=== PATIENT | male | born 1970 | race Caucasian/White ===

== ENCOUNTER 2017-03-11 12:28 | Observation (INO) | payer SELFPAY ==
[2017-03-11] VITALS (9 sets, daily range): BP systolic 119–137; BP diastolic 68–97; PULSE 71–110; RESP 16–18; TEMP 97.9–99; O2SAT 95–98
[~2017-03-11 12:28] MED LIST: Z.0.NO CURRENT MEDS
[2017-03-11 13:43] LABS: AUTOMATED NEUTROPHIL # 7.1 TH/MM3 (1.8-7.7); BASOPHIL % 0.4 % (0.0-2.0); EOSINOPHIL % 0.1 % (0.0-4.0); HEMATOCRIT 46.4 % (39.0-51.0); HEMO FLAGS DIFF FINAL; MEAN CELL VOLUME 91.2 FL (80.0-100.0); MEAN CORPUSCULAR HEMOGLOBIN 31.5 PG (27.0-34.0); MEAN CORPUSCULAR HGB CONC 34.6 % (32.0-36.0); MONO % 7.6 % (0.0-8.0); NEUT % 80.9 % (16.0-70.0); PLATELET COUNT 218 TH/MM3 (150-450); RED BLOOD COUNT 5.09 MIL/MM3 (4.50-5.90); RED CELL DISTRIBUTION WIDTH 13.7 % (11.6-17.2); WHITE BLOOD COUNT 8.8 TH/MM3 (4.0-11.0)
--- NOTE | 2017-03-11 13:45 | RADRPT ---
EXAM DATE/TIME: 03/11/2017 13:27 [place] COMPARISON: No previous studies available for comparison. INDICATIONS : Shortness of breath and chest congestion. MEDICAL HISTORY : None. SURGICAL HISTORY : None. ENCOUNTER: Initial ACUITY: 1 week PAIN SCORE: 0/10 LOCATION: Bilateral chest FINDINGS: PA and lateral views of the chest demonstrate the lungs to be symmetrically aerated without evidence of mass, infiltrate or effusion. The cardiomediastinal contours are unremarkable. Osseous structure s are intact. CONCLUSION: 1. No acute cardiopulmonary disease. Mark Martin MD on March 11, 2017 at 13:41 Board Certified Radiologist. This report was verified electronically.
[2017-03-11 13:53] LABS: APTT (PATIENT) 23.7 SEC (24.3-30.1); PROTHROMBIN TIME - PATIENT 10.4 SEC (9.8-11.6)
[2017-03-11 14:01] LABS: ALT (GPT) 34 U/L (12-78); ANION GAP 6 MEQ/L (5-15); AST (GOT) 19 U/L (15-37); BICARBONATE 26.4 MEQ/L (21.0-32.0); BLOOD UREA NITROGEN 7 MG/DL (7-18); CHLORIDE 107 MEQ/L (98-107); GLOMERULAR FILTRATION RATE 85 ML/MIN (>89); MAGNESIUM 2.3 MG/DL (1.5-2.5); POTASSIUM 3.9 MEQ/L (3.5-5.1); SODIUM (NA) 139 MEQ/L (136-145)
[2017-03-11 14:05] LABS: ALKALINE PHOSPHATASE 86 U/L (45-117); CREATINE KINASE 112 U/L (39-308); TOTAL BILIRUBIN ADULT 0.6 MG/DL (0.2-1.0)
[2017-03-11] MEDS ORDERED: ASPIRIN 81 MG CHEW TAB PO ONE (14:15)
[2017-03-11] MEDS ORDERED: SODIUM CHLORIDE 0.9% FLUSH 10 ML FLUSH IVF PRN (14:15)
[2017-03-11 14:17] LABS: CKMB 0.9 NG/ML (0.5-3.6)
--- NOTE | 2017-03-11 14:17 | PD ---
HPI Chief Complaint: Chest Pain Time Seen by Provider: 14:01 Travel History International Travel<30 days: No Contact w/Intl Traveler<30days: No Traveled to known affect area: No History of Present Illness HPI Patient is a 46-year-old male who presents to emergency room with complaints of chest pain. Patient reports that he has been having chest pain which has been constant for the past week. Patient reports that chest pain is located throughout his chest wall, reports a pressure sensation throughout his chest. Reports that chest pain initially began last week while he was at work. Reports that he was walking and then developed chest pain. Reports that his chest pressure was associated with diaphoresis and sob. Reports that pain has been persistent. Reports that he does not have any medical problems as he does not follow up with a pcp. Patient is a nonsmoker, occasional alcohol drinker. Denies any recent travels/trips. Denies history of ACS, hypertension, hyperlipidemia, DM. Denies cough/congestion. Reports that he initially thought that he had the flu but since symptoms have been persistent, became more concerned. PFSH Past Medical History Autoimmune Disease: No Cancer: No Cardiovascular Problems: No Diminished Hearing: No Endocrine: No Gastrointestinal Disorders: Yes (NOTED SOME GI BLEED ABOUT 2 MTHS AGO - NEVER SAW ) GERD: No Genitourinary: No Hiatal Hernia: No Hypertension: Yes (IN THE PAST) Immune Disorder: No Musculoskeletal: No Neurologic: No Reproductive: No Respiratory: No Ulcer: No Tetanus Vaccination: > 5 Years Influenza Vaccination: Yes Past Surgical History Abdominal Surgery: Yes (COLON SX) Social History Alcohol Use: Yes (OCCASIONALLY) Tobacco Use: No Substance Use: No Allergies-Medications (Allergen,Severity, Reaction): Coded Allergies: No Known Allergies (Verified Adverse Reaction, Unknown, 03/11/17) Reported Meds & Prescriptions Reported Meds & Active Scripts Active No Active Prescriptions or Reported Medications Review of Systems General / Constitutional: No: Fever Eyes: No: Visual changes HENT: No: Headaches Cardiovascular: Positive: Chest Pain or Discomfort, Diaphoresis, Dyspnea on exertion, No: Irregular Rhythm, Tachycardia, Syncope, Varicosities, Edema, Cyanosis Respiratory: Positive: Shortness of Breath Gastrointestinal: No: Nausea, Vomiting, Abdominal Pain Genitourinary: No: Urgency, Dysuria Musculoskeletal: No: Pain Skin: No Rash Neurologic: No: Weakness Psychiatric: No: Depression Endocrine: No: Polydipsia Hematologic/Lymphatic: No: Easy Bruising Physical Exam Narrative GENERAL: NAD SKIN: Focused skin assessment warm/dry. HEAD: Atraumatic. Normocephalic. EYES: Pupils equal and round. No scleral icterus. No injection or drainage. ENT: No nasal bleeding or discharge. Mucous membranes pink and moist. NECK: Trachea midline. No JVD. CARDIOVASCULAR: Regular rate and rhythm. No murmur appreciated. RESPIRATORY: No accessory muscle use. Clear to auscultation. Breath sounds equal bilaterally. GASTROINTESTINAL: Abdomen soft, non-tender, nondistended. Hepatic and splenic margins not palpable. MUSCULOSKELETAL: No obvious deformities. No clubbing. No cyanosis. No edema. NEUROLOGICAL: Awake and alert. No obvious cranial nerve deficits. Motor grossly within normal limits. Normal speech. PSYCHIATRIC: Appropriate mood and affect; insight and judgment normal. Data Data Last Documented VS Vital Signs Date Time Temp Pulse Resp B/P (MAP) Pulse Ox O2 Delivery O2 Flow Rate FiO2 03/11/17 14:45 16 03/11/17 14:40 92 124/81 (95) 98 Room Air 03/11/17 12:30 99.0 Orders Orders Electrocardiogram (03/11/17 12:59) B-Type Natriuretic Peptide (03/11/17 12:59) Ckmb (Isoenzyme) Profile (03/11/17 12:59) Complete Blood Count With Diff (03/11/17 12:59) Comprehensive Metabolic Panel (03/11/17 12:59) Magnesium (Mg) (03/11/17 12:59) Prothrombin Time / Inr (Pt) (03/11/17 12:59) Act Partial Throm Time (Ptt) (03/11/17 12:59) Troponin I (03/11/17 12:59) Chest, Pa & Lat (03/11/17 12:59) CKMB (03/11/17 13:20) CKMB% (03/11/17 13:20) Ecg Monitoring (03/11/17 14:07) Iv Access Insert/Monitor (03/11/17 14:07) Oximetry (03/11/17 14:07) Aspirin Chew (Aspirin Chew) (03/11/17 14:15) Sodium Chloride 0.9% Flush (Ns Flush) (12/13/17 14:15) Nitroglycerin Sl (Nitrostat Sl) (03/11/17 14:15) Labs Laboratory Tests Test 03/11/17 13:20 White Blood Count 8.8 TH/MM3 Red Blood Count 5.09 MIL/MM3 Hemoglobin 16.0 GM/DL Hematocrit 46.4 % Mean Corpuscular Volume 91.2 FL Mean Corpuscular Hemoglobin 31.5 PG Mean Corpuscular Hemoglobin Concent 34.6 % Red Cell Distribution Width 13.7 % Platelet Count 218 TH/MM3 Mean Platelet Volume 7.8 FL Neutrophils (%) (Auto) 80.9 % Lymphocytes (%) (Auto) 11.0 % Monocytes (%) (Auto) 7.6 % Eosinophils (%) (Auto) 0.1 % Basophils (%) (Auto) 0.4 % Neutrophils # (Auto) 7.1 TH/MM3 Lymphocytes # (Auto) 1.0 TH/MM3 Monocytes # (Auto) 0.7 TH/MM3 Eosinophils # (Auto) 0.0 TH/MM3 Basophils # (Auto) 0.0 TH/MM3 CBC Comment DIFF FINAL Differential Comment Prothrombin Time 10.4 SEC Prothromb Time International Ratio 1.0 RATIO Activated Partial Thromboplast Time 23.7 SEC Blood Urea Nitrogen 7 MG/DL Creatinine 0.95 MG/DL Random Glucose 102 MG/DL Total Protein 7.7 GM/DL Albumin 4.1 GM/DL Calcium Level 9.1 MG/DL Magnesium Level 2.3 MG/DL Alkaline Phosphatase 86 U/L Aspartate Amino Transf (AST/SGOT) 19 U/L Alanine Aminotransferase (ALT/SGPT) 34 U/L Total Bilirubin 0.6 MG/DL Sodium Level 139 MEQ/L Potassium Level 3.9 MEQ/L Chloride Level 107 MEQ/L Carbon Dioxide Level 26.4 MEQ/L Anion Gap 6 MEQ/L Estimat Glomerular Filtration Rate 85 ML/MIN Total Creatine Kinase 112 U/L Creatine Kinase MB 0.9 NG/ML Troponin I LESS THAN 0.02 NG/ML B-Type Natriuretic Peptide 16 PG/ML MDM Medical Decision Making Medical Screen Exam Complete: Yes Emergency Medical Condition: Yes Medical Record Reviewed: Yes Interpretation(s) EKG at 1317: NSR at 89bpm, qt/qtc: 347/393, nonspecific t wave changes Vital Signs Date Time Temp Pulse Resp B/P (MAP) Pulse Ox O2 Delivery O2 Flow Rate FiO2 03/11/17 13:55 86 16 98 Room Air 03/11/17 12:30 99.0 110 16 137/97 (110) 98 Differential Diagnosis acs, arrhythmia, pneumothorax, pneumonia, viral syndrome Narrative Course During the course of the patients emergency department visit, the patients history, examination, and differential diagnosis were reviewed with the patient. The patient was placed on a nurse monitoring with oximetry and frequent blood pressure monitoring. The patient had an IV access obtained and blood work sent for analysis. The patient was initially provided aspirin as well as sublingual nitroglycerin The patients laboratory studies were reviewed and remarkable for: CBC & BMP Diagram 03/11/17 13:20 Total Protein 7.7, Albumin 4.1, Calcium Level 9.1, Magnesium Level 2.3, Alkaline Phosphatase 86, Aspartate Amino Transf (AST/SGOT) 19, Alanine Aminotransferase (ALT/SGPT) 34, Total Bilirubin 0.6 Trop 0.02 Radiology studies were reviewed and remarkable for: Last Impressions Chest X-Ray 03/11/17 1259 Signed Impressions: Service Date/Time: Saturday, March 11, 2017 13:27 - CONCLUSION: 1. No acute cardiopulmonary disease. Mark Martin MD Patient with relief of "chest pressure" after 3 SL nitro's given Diagnosis Primary Impression: Chest pain Qualified Codes: R07.9 - Chest pain, unspecified Admitting Information Admitting Physician Requests: Observation Scripts No Active Prescriptions or Reported Meds Cherise Barajas DO Mar 11, 2017 14:17
[2017-03-11] MEDS: NITROGLYCERIN 0.4 MG SL 25 TABS/BTL SL SCH ×3 (14:28→14:39)
[2017-03-11] MEDS ORDERED: ACETAMINOPHEN 500 MG CPLT PO PRN (15:15)
[2017-03-11] MEDS ORDERED: NITROGLYCERIN 0.4 MG SL 25 TABS/BTL SL PRN (15:15)
[2017-03-11] MEDS ORDERED: ONDANSETRON HCL 4 MG/2 ML VIAL IV PUSH PRN (15:15)
--- NOTE | 2017-03-11 15:27 | HHI.HP ---
HPI Primary Care Physician No Primary Care Physician Chief Complaint Chest pressure History of Present Illness 46 year old male without any significant past medical history presents to ER for further evaluation of chest pressure. Onset 10 days ago. Initially felt chest pressure may be "walking pneumonia" denying any other symptoms. Using over the counter Mucinex x2 days with some relief. denies any cough or sputum production. Reporting good appetite and fluid intake. Started feeling better yesterday, however reports this morning "upper chest pressure returned." Duration constant today. Associated symptoms include dyspnea, made worse with walking. No associated symptoms of nausea, vomiting, or diaphoresis. No known precipitating or relieving factors. Denies similar pain in the past. No recent travel or history of DVT. Review of Systems General: No fatigue,weakness, fever, chills, or change in appetite. HEENT: No GILL, no vision changes, no nasal congestion or drainage, no dysphasia CV: Continues to have left and right anterior chest pressure as stated above. RESP: No SOB, cough, or wheeze. GI: No nausea or vomiting, bowel changes, diarrhea, constipation, pain, distention, melena, blood in the stool. No change in appetite, no unintentional weight gain or weight loss : No dysuria, urgency, frequency, or history of kidney stones EXT: No lower leg edema MS: No discomfort or change in ROM NEURO: No dizziness, difficulty with balance, LOC, motor/sensory deficits PSYCH: No anxiety, depression SKIN: No rashes, no concerning lesions Past Family Social History Allergies: Coded Allergies: No Known Allergies (Verified Allergy, Unknown, 03/11/17) Past Medical History None Past Surgical History Colon surgery Reported Medications Reported Meds & Active Scripts Active No Active Prescriptions or Reported Medications Active Ordered Medications Current Medications Medications (Trade) Dose Ordered Sig/Ascencion Route Start Time Stop Time Status Last Admin (NS Flush) 2 ml UNSCH PRN IVF 03/11/17 14:15 03/11/17 14:28 (NS Flush) 2 ml BID IV FLUSH 03/11/17 21:00 (Tylenol) 500 mg Q4H PRN PO 03/11/17 15:15 (Zofran Inj) 4 mg Q6H PRN IV PUSH 03/11/17 15:15 (Nitrostat Sl) 0.4 mg Q5M PRN SL 03/11/17 15:15 (Aspirin) 325 mg DAILY PO 03/12/17 09:00 Family History Noncontributory for early onset cardiovascular disease. Social History No known diabetes, hypertension, or hyperlipidemia. Lifelong nonsmoker. Denies any alcohol or illegal drug use. Endorses an active lifestyle. Past cardiac testing None Physical Exam Vital Signs Vital Signs Date Time Temp Pulse Resp B/P (MAP) Pulse Ox O2 Delivery O2 Flow Rate FiO2 03/11/17 14:45 16 03/11/17 14:40 92 16 124/81 (95) 98 Room Air 03/11/17 14:32 96 17 133/89 (104) 98 Room Air 03/11/17 14:10 16 98 Room Air 03/11/17 13:55 86 16 98 Room Air 03/11/17 12:30 99.0 110 16 137/97 (110) 98 Physical Exam GENERAL: Alert WN, WD, NAD, pleasant, male HEAD: NC, AT EYES: Sclera clear, conjunctiva without injection, pupils equal and round ENT: Mucous membranes pink and moist NECK: Supple, no masses, trachea midline CV: RRR, without murmur, rub, gallop, no JVD, S1-S2 no S3-S4. Chest chest wall pain not reproduced with palpation. RESP: Clear lungs throughout bilateral, no crackles, wheeze, rhonchi, symmetrical chest rise, nonlabored, able to speak in full sentences ABD: Soft, NT, ND, no masses, positive bowel tones EXT: Pulses +24, no dependent edema MS: Normal tone 4 extremities, nontender, no obvious deformities, full range of motion NEURO: CN II through CN XII grossly intact, motor strength 5/5, PSYCH: A+O 3, pleasant affect, appropriate speech, mood, insight and judgment SKIN: Normal turgor, normal texture, no lesions, no rashes, brisk cap refill, even hair distribution Laboratory Laboratory Tests Test 03/11/17 13:20 White Blood Count 8.8 Red Blood Count 5.09 Hemoglobin 16.0 Hematocrit 46.4 Mean Corpuscular Volume 91.2 Mean Corpuscular Hemoglobin 31.5 Mean Corpuscular Hemoglobin Concent 34.6 Red Cell Distribution Width 13.7 Platelet Count 218 Mean Platelet Volume 7.8 Neutrophils (%) (Auto) 80.9 Lymphocytes (%) (Auto) 11.0 Monocytes (%) (Auto) 7.6 Eosinophils (%) (Auto) 0.1 Basophils (%) (Auto) 0.4 Neutrophils # (Auto) 7.1 Lymphocytes # (Auto) 1.0 Monocytes # (Auto) 0.7 Eosinophils # (Auto) 0.0 Basophils # (Auto) 0.0 CBC Comment DIFF FINAL Differential Comment Prothrombin Time 10.4 Prothromb Time International Ratio 1.0 Activated Partial Thromboplast Time 23.7 Blood Urea Nitrogen 7 Creatinine 0.95 Random Glucose 102 Total Protein 7.7 Albumin 4.1 Calcium Level 9.1 Magnesium Level 2.3 Alkaline Phosphatase 86 Aspartate Amino Transf (AST/SGOT) 19 Alanine Aminotransferase (ALT/SGPT) 34 Total Bilirubin 0.6 Sodium Level 139 Potassium Level 3.9 Chloride Level 107 Carbon Dioxide Level 26.4 Anion Gap 6 Estimat Glomerular Filtration Rate 85 Total Creatine Kinase 112 Creatine Kinase MB 0.9 Troponin I LESS THAN 0.02 B-Type Natriuretic Peptide 16 Result Diagram: 03/11/17 1320 03/11/17 1320 Imaging Last Impressions Chest X-Ray 03/11/17 1259 Signed Impressions: Service Date/Time: Saturday, March 11, 2017 13:27 - CONCLUSION: 1. No acute cardiopulmonary disease. Mark Martin MD Course EKG NSR, normal axis, no st changes, nonspecific t wave changes Caprini VTE Risk Assessment Caprini VTE Risk Assessment: No/Low Risk (score <= 1) Caprini Risk Assessment Model Point Value = 1 Point Value = 2 Point Value = 3 Point Value = 5 Age 41-60 Minor surgery BMI > 25 kg/m2 Swollen legs Varicose veins or History of unexplained or recurrent spontaneous Oral contraceptives or hormone replacement Sepsis (< 1 month) Serious lung disease, including pneumonia (< 1 month) Abnormal pulmonary function Acute myocardial infarction Congestive heart failure (< 1 month) History of inflammatory bowel disease Medical patient at bed rest Age 61-74 Arthroscopic surgery Major open surgery (> 45 min) Laparoscopic surgery (> 45 min) Malignancy Confined to bed (> 72 hours) Immobilizing plaster cast Central venous access Age >= 75 History of VTE Family history of VTE Factor V Leiden Prothrombin [id number] Lupus anticoagulant Anticardiolipin antibodies Elevated serum homocysteine Heparin-induced thrombocytopenia Other congenital or acquired thrombophilia Stroke (< 1 month) Elective arthroplasty Hip, pelvis, or leg fracture Acute spinal cord injury (< 1 month) Prophylaxis Regimen Total Risk Factor Score Risk Level Prophylaxis Regimen 0-1 Low Early ambulation 2 Moderate Order ONE of the following: *Sequential Compression Device (SCD) *Heparin 5000 units SQ BID 3-4 Higher Order ONE of the following medications: *Heparin 5000 units SQ TID *Enoxaparin/Lovenox 40 mg SQ daily (WT < 150 kg, CrCl > 30 mL/min) *Enoxaparin/Lovenox 30 mg SQ daily (WT < 150 kg, CrCl > 10-29 mL/min) *Enoxaparin/Lovenox 30 mg SQ BID (WT < 150 kg, CrCl > 30 mL/min) AND/OR *Sequential Compression Device (SCD) 5 or more Highest Order ONE of the following medications: *Heparin 5000 units SQ TID (Preferred with Epidurals) *Enoxaparin/Lovenox 40 mg SQ daily (WT < 150 kg, CrCl > 30 mL/min) *Enoxaparin/Lovenox 30 mg SQ daily (WT < 150 kg, CrCl > 10-29 mL/min) *Enoxaparin/Lovenox 30 mg SQ BID (WT < 150 kg, CrCl > 30 mL/min) AND *Sequential Compression Device (SCD) Assessment and Plan Assessment and Plan #1 Atypical chest pain-admitted to chest pain center. Rule out with 3 sets of EKGs, cardiac enzymes, and monitor overnight. Seen and evaluated by Dr. Gordon Kang. Obtain sed rate and D-dimer. If ruled out, plan to complete exercise cardiac stress testing in morning. Reassurance provided pain atypical however will rule out for pericarditis and a pulmonary embolism. Explained to patient in length, verbalized understanding. Patient agreeable to plan of care. Mady Beatty Mar 11, 2017 15:27
[2017-03-11 16:55] LABS: CREATINE KINASE 96 U/L (39-308)
[2017-03-11 20:58] LABS: CREATINE KINASE 94 U/L (39-308)
[2017-03-11] MEDS: SODIUM CHLORIDE 0.9% FLUSH 10 ML FLUSH IV FLUSH SCH (21:00)
[2017-03-12 00:29] VITALS: PULSE 72
[2017-03-12 03:07] VITALS: BP 120/85; PULSE 64; RESP 17; TEMP 98; O2SAT 96
[2017-03-12 04:10] VITALS: PULSE 66
[2017-03-12 07:34] VITALS: BP 133/86; PULSE 83; RESP 18; TEMP 98.1; O2SAT 93
[2017-03-12 07:35] VITALS: PULSE 90
--- NOTE | 2017-03-12 08:52 | HHI.DCPOC ---
Discharge Care Plan Diagnosis: (1) Chest pain Goals to Promote Your Health * To prevent worsening of your condition and complications * To maintain your health at the optimal level Directions to Meet Your Goals Take your medications as prescribed Follow your dietary instruction Follow activity as directed Keep your appointments as scheduled Take your immunizations and boosters as scheduled If your symptoms worsen call your PCP, if no PCP go to Urgent Care Center or Emergency Room Smoking is Dangerous to Your Health. Avoid second hand smoke Call the 24-hour hour crisis hotline for domestic abuse at Kwesi Lay Mar 12, 2017 08:52
[2017-03-12] MEDS ORDERED: ASPIRIN 325 MG TAB PO SCH (09:00)
[2017-03-12] MEDS: SODIUM CHLORIDE 0.9% FLUSH 10 ML FLUSH IV FLUSH SCH (09:00)
--- NOTE | 2017-03-13 08:52 | EKG ---
Date Performed: 03/11/2017 Time Performed: 20:00:48 PTAGE: 46 years EKG: Sinus rhythm NONSPECIFIC T-WAVE ABNORMALITY BORDERLINE ECG PREVIOUS TRACING : 03/11/2017 16.12 Since previous tracing, no significant change noted DOCTOR: Gordon Kang Interpretating Date/Time 03/13/2017 08:50:19
--- NOTE | 2017-03-13 08:53 | EKG ---
Date Performed: 03/11/2017 Time Performed: 16:12:00 PTAGE: 46 years EKG: Sinus rhythm NONSPECIFIC T-WAVE ABNORMALITY BORDERLINE ECG PREVIOUS TRACING : 03/11/2017 13.17 Since previous tracing, no significant change noted DOCTOR: Gordon Kang Interpretating Date/Time 03/13/2017 08:52:00
--- NOTE | 2017-03-13 08:54 | EKG ---
Date Performed: 03/11/2017 Time Performed: 13:17:59 PTAGE: 46 years EKG: Sinus rhythm NONSPECIFIC T-WAVE ABNORMALITY BORDERLINE ECG PREVIOUS TRACING : 05/21/2012 22.45 Since previous tracing, no significant change noted DOCTOR: Gordon Kang Interpretating Date/Time 03/13/2017 08:53:33
--- NOTE | 2017-03-13 09:01 | TR ---
Date Performed: 03/12/2017 Time Performed: 08:27:08 DOCTOR: Gordon Kang DRUG LIST: CLINICAL HISTORY: REASON FOR TEST: Chest pain REASON FOR ENDING: OBSERVATION: CONCLUSION: DIYA PROTOCOL. NO CP. TEST STOPPED AFTER EXCEEDING GOAL HR SECONDARY TO SOB AND LEG FATIGUE. POOR EXERCISE TOLERANCE.Maximum YA=560 % Max HR Achieved=90.0% Maximum TT=959/86 Total Exer cise Time=2:16 COMMENTS: Patient exercised using the Diya protocol. No electrocardiographic changes were seen to suggest ischemia. Hemodynamic response to exercise was normal. No significant arrhythmia was prese nt.
== END 2017-03-12 10:55 | disposition home or self-care (01) ==
LOC: NEPD 12:28 → NEDA 14:56 → NEPGCP 17:06
PROVIDERS: ADMIT Internal Medicine Cardiovascular Disease; ATTEND Internal Medicine Cardiovascular Disease
DX: R07.89 Other chest pain (principal); R06.02 Shortness of breath; R61 Generalized hyperhidrosis; I10 Essential (primary) hypertension; R94.31 Abnormal electrocardiogram [ECG] [EKG]
CPT/HCPCS: 71020; 80053; 82550; 82552; 83735; 83880; 84484; 85025; 85379; 85610; 85652; 85730; 93005; 93017; 99285; G0378

== ENCOUNTER 2017-03-28 08:00 | Emergency (ER) | payer SELFPAY ==
[~2017-03-28] VITALS: Ht 182.9 cm; Wt 102.2 kg
[2017-03-28 08:02] VITALS: BP 142/84; PULSE 120; RESP 16; TEMP 97.8; O2SAT 98
--- NOTE | 2017-03-28 08:22 | PD ---
HPI Chief Complaint: ENT Complaint Time Seen by Provider: 08:21 Travel History International Travel<30 days: No Contact w/Intl Traveler<30days: No Traveled to known affect area: No History of Present Illness HPI 46-year-old occasional male one week history of increasing sinus congestion and pressure more on the left than the right well as increasing cough and congestion in the chest. Patient denies significant fever, ear pain, or sore throat. No nausea or vomiting. No diarrhea. Patient has no known drug allergies. PFSH Past Medical History Autoimmune Disease: No Heart Rhythm Problems: No Cancer: No Cardiac Catheterization: No Cardiovascular Problems: No High Cholesterol: No Congestive Heart Failure: No Diabetes: No Diminished Hearing: No Endocrine: No Gastrointestinal Disorders: Yes (NOTED SOME GI BLEED ABOUT 2 MTHS AGO - NEVER SAW ) GERD: No Genitourinary: No Hiatal Hernia: No Hypertension: Yes (IN THE PAST) Immune Disorder: No Musculoskeletal: No Neurologic: No Reproductive: No Respiratory: No Ulcer: No Past Surgical History Abdominal Surgery: Yes (COLON SX) Coronary Artery Bypass Graft: No Social History Alcohol Use: Yes (OCCASIONALLY) Tobacco Use: No Substance Use: No Allergies-Medications (Allergen,Severity, Reaction): Coded Allergies: No Known Allergies (Verified Allergy, Unknown, 03/28/17) Reported Meds & Prescriptions Reported Meds & Active Scripts Active Flonase Nasal [place] (Fluticasone Nasal [place]) 50 Mcg/Act [place] 100 Mcg EACH NARE BID Amoxicillin 875 Mg Tab 875 Mg PO BID 10 Days Review of Systems Except as stated in HPI: all other systems reviewed are Neg General / Constitutional: No: Fever, Chills Eyes: No: Visual changes HENT: Positive: Headaches, Rhinitis, Rhinorrhea, Congestion, Nosebleed, No: Vertigo, Lightheadedness, Sore Throat, Neck Stiffness, Neck Pain, Dental Difficulties, Earache Cardiovascular: No: Chest Pain or Discomfort Respiratory: Positive: Cough, No: Shortness of Breath, Wheezing Gastrointestinal: No: Nausea, Vomiting, Diarrhea, Abdominal Pain Genitourinary: No: Dysuria Musculoskeletal: No: Pain Skin: No Rash Neurologic: No: Weakness Psychiatric: No: Depression Endocrine: No: Polydipsia Hematologic/Lymphatic: No: Easy Bruising Physical Exam Narrative GENERAL: Patient appears in no acute distress. SKIN: Warm and dry. Normal color. Normal turgor. No rash HEAD: Atraumatic. Normocephalic. EYES: Pupils equal and round. No scleral icterus. No injection or drainage. ENT: No nasal bleeding or discharge. Patient has sinus tenderness with palpation percussion 1 the left than the right ankle frontal and maxillary sinuses. Mucous membranes pink and moist. Inspection of the nares shows swollen erythematous turbinates bilaterally more on the left than the right. The pharynx is somewhat irritated with increased postnasal drip noted in the posterior pharynx. No significant swelling is noted. Uvula is midline. Airway is patent. NECK: Trachea midline. Supple and nontender without significant lymphadenopathy. CARDIOVASCULAR: Regular rate and rhythm. RESPIRATORY: No accessory muscle use. Clear to auscultation. Breath sounds equal bilaterally. MUSCULOSKELETAL: Extremities without clubbing, cyanosis, or edema. No obvious deformities. NEUROLOGICAL: Awake and alert. No obvious cranial nerve deficits. Motor grossly within normal limits. Five out of 5 muscle strength in the arms and legs. Normal speech. PSYCHIATRIC: Appropriate mood and affect; insight and judgment normal. Data Data Last Documented VS Vital Signs Date Time Temp Pulse Resp B/P (MAP) Pulse Ox O2 Delivery O2 Flow Rate FiO2 03/28/17 08:02 97.8 120 16 142/84 (103) 98 Orders Orders Ed Discharge Order (03/28/17 08:34) [facility] Medical Decision Making Medical Screen Exam Complete: Yes Emergency Medical Condition: Yes Differential Diagnosis Upper respiratory infection. Sinusitis. Bronchitis. Narrative Course Patient is medically stable at time of exam. Facial be treated with amoxicillin 875 twice a day 10 days. Patient is given Flonase nasal spray 2 sprays nostril daily. Patient take cough medicine of choice as needed [id number]. Patient follow up if symptoms do not improve or worsen over the next week. Diagnosis Primary Impression: Sinusitis, acute maxillary Qualified Codes: J01.01 - Acute recurrent maxillary sinusitis Referrals: [facility] Patient Instructions: General Instructions, Sinusitis (ED) Additional Instructions: Patient is medically stable at time of exam. Facial be treated with amoxicillin 875 twice a day 10 days. Patient is given Flonase nasal spray 2 sprays nostril daily. Patient take cough medicine of choice as needed [id number]. Patient follow up if symptoms do not improve or worsen over the next week. Med/Other Pt SpecificInfo: Prescription(s) given Scripts Fluticasone Nasal [place] (Flonase Nasal [place]) 50 Mcg/Act [place] 100 MCG EACH NARE BID for Allergies, #1 BOTTLE 0 Refills Prov: Yobani Flynn MD 03/28/17 Amoxicillin (Amoxicillin) 875 Mg Tab 875 MG PO BID for Infection for 10 Days, #20 TAB 0 Refills Prov: Yobani Flynn MD 03/28/17 Disposition: 01 DISCHARGE HOME Condition: Satya Burroughs Mar 28, 2017 08:22
[2017-03-28] MEDS ORDERED: AMOX875T PO (08:29)
[2017-03-28] MEDS ORDERED: FLUT1SPR5 EACH NARE (08:29)
== END 2017-03-28 08:52 | disposition home or self-care (01) ==
LOC: NEPD 08:00
DX: J01.01 Acute recurrent maxillary sinusitis (principal)
CPT/HCPCS: 99283

== ENCOUNTER 2017-04-02 11:05 | Emergency (ER) | payer SELFPAY ==
[~2017-04-02] VITALS: Ht 182.9 cm; Wt 101.0 kg
[~2017-04-02 11:05] MED LIST changes: +AMOX875T PO; +FLUT1SPR5 EACH NARE; -Z.0.NO CURRENT MEDS
[2017-04-02 11:06] VITALS: BP 163/103; PULSE 119; RESP 18; TEMP 98.3; O2SAT 96
[2017-04-02 11:33] VITALS: BP 124/80; PULSE 97; O2SAT 96
--- NOTE | 2017-04-02 12:06 | PD ---
HPI Chief Complaint: ENT Complaint Time Seen by Provider: 11:40 Travel History International Travel<30 days: No Contact w/Intl Traveler<30days: No Traveled to known affect area: No History of Present Illness HPI 46-year-old male presents to the emergency room for evaluation of left sided nasal obstruction. States it is making it difficult for him to breathe out of his left nose which is stressing him out and causing him to lose sleep. He came to the emergency room last week for and was given fluticasone and amoxicillin. He has been taking medications but without improvement in symptoms. States he has also been applying Vicks vapor rub and noticed that the left side of his nose seemed to have a bump in it. States it feels different from the right side. Patient has not been able to follow up with her primary care physician or ENT because he does not have insurance. PFSH Past Medical History Autoimmune Disease: No Heart Rhythm Problems: No Cancer: No Cardiac Catheterization: No Cardiovascular Problems: No High Cholesterol: No Congestive Heart Failure: No Diabetes: No Diminished Hearing: No Endocrine: No Gastrointestinal Disorders: Yes (NOTED SOME GI BLEED ABOUT 2 MTHS AGO - NEVER SAW ) GERD: No Genitourinary: No Hiatal Hernia: No Hypertension: Yes (IN THE PAST) Immune Disorder: No Musculoskeletal: No Neurologic: No Reproductive: No Respiratory: No Ulcer: No Past Surgical History Abdominal Surgery: Yes (COLON SX) Coronary Artery Bypass Graft: No Social History Alcohol Use: Yes (OCCASIONALLY) Tobacco Use: No Substance Use: No Allergies-Medications (Allergen,Severity, Reaction): Coded Allergies: No Known Allergies (Verified Allergy, Unknown, 04/02/17) Reported Meds & Prescriptions Reported Meds & Active Scripts Active Flonase Nasal [place] (Fluticasone Nasal [place]) 50 Mcg/Act [place] 100 Mcg EACH NARE BID Amoxicillin 875 Mg Tab 875 Mg PO BID 10 Days Review of Systems Except as stated in HPI: all other systems reviewed are Neg Physical Exam Narrative GENERAL: Well-nourished, well-developed male in no acute distress. Afebrile. Ambulatory. SKIN: Focused skin assessment warm/dry. HEAD: Normocephalic. EYES: No scleral icterus. No injection or drainage. ENT: Mucosa pink and moist. No erythema or exudates. No uvular edema. No uvular , palatal, or tonsillar deviation. Airway patent. Nasal turbinates appear normal without nasal blood, purulent drainage or septal hematoma. There is mild septal deviation to the left. NECK: Supple, trachea midline. No JVD or lymphadenopathy. CARDIOVASCULAR: Regular rate and rhythm without murmurs, gallops, or rubs. RESPIRATORY: Breath sounds equal bilaterally. No accessory muscle use. Data Data Last Documented VS Vital Signs Date Time Temp Pulse Resp B/P (MAP) Pulse Ox O2 Delivery O2 Flow Rate FiO2 04/02/17 11:33 97 04/02/17 11:33 124/80 (95) 96 04/02/17 11:06 98.3 18 Room Air MDM Medical Decision Making Medical Screen Exam Complete: Yes Emergency Medical Condition: Yes Medical Record Reviewed: Yes Differential Diagnosis Foreign body, polyp, deviated septum Narrative Course 46-year-old male presents to the emergency room for evaluation of foreign body sensation to his left nostril the past several weeks. States he came one week ago for the same and was given amoxicillin and fluticasone without any relief in symptoms. Physical exam is unremarkable. There is no obvious polyp. No significant deviated septum. No septal hematoma. No evidence of purulent drainage or infection. Patient anxious about the sensation because it is affecting his activities of daily living. States it is nothing him to lose sleep at night. Perhaps he has sleep apnea. Because this is his second visit and there is no appreciable foreign body on exam, he will be referred to ENT for a complete exam. Told to return for worsening symptoms. He understands and agrees to plan. Diagnosis Primary Impression: Deviated nasal septum Referrals: Ear / Nose / Throat Specialist Additional Instructions: Follow-up with an ENT physician. Return for worsening symptoms. Disposition: 01 DISCHARGE HOME Condition: Stable Cynthia Ramirez Apr 02, 2017 12:06
== END 2017-04-02 12:25 | disposition home or self-care (01) ==
LOC: NEPK 11:05
DX: J34.2 Deviated nasal septum (principal); I10 Essential (primary) hypertension
CPT/HCPCS: 99282

== ENCOUNTER 2017-04-13 23:27 | Emergency (ER) | payer SELFPAY ==
[~2017-04-13] VITALS: Ht 182.9 cm; Wt 100.0 kg
[2017-04-13 23:34] VITALS: BP 135/97; PULSE 74; RESP 18; TEMP 98.1; O2SAT 97
[2017-04-13 23:38] VITALS: O2SAT 96
[2017-04-13] MEDS ORDERED: MOBI7.5T PO (23:41)
[2017-04-13] MEDS ORDERED: SODIUM CHLORIDE 0.9% FLUSH 10 ML FLUSH IVF PRN (23:45)
[2017-04-13 23:55] LABS: BASOPHIL % 0.5 % (0.0-2.0); EOSINOPHIL # 0.1 TH/MM3 (0-0.4); EOSINOPHIL % 0.9 % (0.0-4.0); HEMOGLOBIN 16.5 GM/DL (13.0-17.0); LYMPH % 27.4 % (9.0-44.0); LYMPHOCYTE # 2.2 TH/MM3 (1.0-4.8); MEAN CELL VOLUME 90.5 FL (80.0-100.0); MEAN CORPUSCULAR HEMOGLOBIN 31.8 PG (27.0-34.0); MEAN CORPUSCULAR HGB CONC 35.1 % (32.0-36.0); MEAN PLATELET VOLUME 7.4 FL (7.0-11.0); MONO % 8.5 % (0.0-8.0); MONOCYTE # 0.7 TH/MM3 (0-0.9); NEUT % 62.7 % (16.0-70.0); PLATELET COUNT 228 TH/MM3 (150-450); RED CELL DISTRIBUTION WIDTH 13.4 % (11.6-17.2); WHITE BLOOD COUNT 7.9 TH/MM3 (4.0-11.0)
--- NOTE | 2017-04-14 00:08 | RADRPT ---
EXAM DATE/TIME: 04/13/2017 23:45 [facility] COMPARISON: No previous studies available for comparison. INDICATIONS : Shortness of breath. MEDICAL HISTORY : None. SURGICAL HISTORY : None. ENCOUNTER: Initial ACUITY: 1 day PAIN SCORE: 0/10 LOCATION: Bilateral chest FINDINGS: A single view of the chest demonstrates the lungs to be symmetrically aerated without evidence of mas s, infiltrate or effusion. The cardiomediastinal contours are unremarkable. Osseous structures are intact. CONCLUSION: No acute disease. Yahir Medrano MD on April 14, 2017 at 0:05 Board Certified Radiologist. This report was verified electronically.
[2017-04-14] MEDS ORDERED: KETOROLAC TROMETHAMINE 30 MG/ML (IVP) VIAL IV PUSH ONE (00:15)
[2017-04-14] MEDS ORDERED: ONDANSETRON HCL 4 MG/2 ML VIAL IV PUSH ONE (00:15)
[2017-04-14 00:26] LABS: AST (GOT) 11 U/L (15-37); BICARBONATE 25.2 MEQ/L (21.0-32.0); BLOOD UREA NITROGEN 9 MG/DL (7-18); CHLORIDE 106 MEQ/L (98-107); CREATININE 1.03 MG/DL (0.60-1.30); GLOMERULAR FILTRATION RATE 77 ML/MIN (>89); GLUCOSE,RANDOM 88 MG/DL (74-106); MAGNESIUM 2.5 MG/DL (1.5-2.5); SODIUM (NA) 139 MEQ/L (136-145)
[2017-04-14 00:31] LABS: ALKALINE PHOSPHATASE 73 U/L (45-117); ALT (GPT) 30 U/L (12-78); TOTAL BILIRUBIN ADULT 0.7 MG/DL (0.2-1.0); TOTAL PROTEIN 7.4 GM/DL (6.4-8.2); TROPONIN I LESS THAN 0.02 NG/ML (0.02-0.05)
[2017-04-14 00:38] LABS: PROTHROMBIN TIME - PATIENT 10.6 SEC (9.8-11.6)
[2017-04-14 00:42] LABS: D-DIMER 0.28 MG/L FEU (0.00-0.50)
--- NOTE | 2017-04-14 02:41 | PD ---
HPI . Chest pain Chief Complaint: Respiratory Distress Time Seen by Provider: 23:32 Travel History International Travel<30 days: No Contact w/Intl Traveler<30days: No Traveled to known affect area: No History of Present Illness HPI 46-year-old male complains of substernal chest pain radiating across his chest intermittently lasting for a few seconds at a time, unrelated to exertional level, time of day, body position supine or upright. Patient denies any recent sedentary. Confined travel, no leg pain or swelling recently. Patient has no cough no fever no chills no night sweats no weight loss. Patient denies any significant ill contacts. Patient has had no change in exercise tolerance of late. Patient does note increased stress of late. PFSH Past Medical History Narrative Medical Past medical history reviewed Autoimmune Disease: No Heart Rhythm Problems: No Cancer: No Cardiac Catheterization: No Cardiovascular Problems: No High Cholesterol: No Congestive Heart Failure: No Diabetes: No Diminished Hearing: No Endocrine: No Gastrointestinal Disorders: Yes (NOTED SOME GI BLEED ABOUT 2 MTHS AGO - NEVER SAW ) GERD: No Genitourinary: No Hiatal Hernia: No Hypertension: Yes (IN THE PAST) Immune Disorder: No Musculoskeletal: No Neurologic: No Reproductive: No Respiratory: No Ulcer: No Tetanus Vaccination: < 5 Years Influenza Vaccination: No Past Surgical History Abdominal Surgery: Yes (COLON SX) Coronary Artery Bypass Graft: No Social History Alcohol Use: Yes (OCCASIONALLY) Tobacco Use: No Substance Use: No Allergies-Medications (Allergen,Severity, Reaction): Coded Allergies: No Known Allergies (Verified Allergy, Unknown, 04/02/17) Reported Meds & Prescriptions Reported Meds & Active Scripts Active Reported Mobic (Meloxicam) 7.5 Mg Tab 7.5 Mg PO DAILY Narrative Medication Allergies and medications reviewed Review of Systems Except as stated in HPI: all other systems reviewed are Neg General / Constitutional: No: Fever Eyes: No: Visual changes HENT: No: Headaches Cardiovascular: Positive: Chest Pain or Discomfort, No: Palpitations, Irregular Rhythm, Tachycardia, Diaphoresis, Syncope, Dyspnea on exertion, Varicosities, Edema, Cyanosis Respiratory: No: Cough, Shortness of Breath, Orthopnea, Hemoptysis, Night Sweats Gastrointestinal: No: Abdominal Pain Genitourinary: No: Dysuria Musculoskeletal: No: Pain Skin: No Rash Neurologic: No: Weakness Psychiatric: No: Depression Endocrine: No: Polydipsia Hematologic/Lymphatic: No: Easy Bruising Physical Exam Narrative GENERAL: Awake and alert oriented 3 no acute distress. Vital signs afebrile normal and stable patient appears somewhat anxious SKIN: Warm and dry. Color is normal diaphoresis cyanosis or pallor HEAD: Atraumatic. Normocephalic. EYES: Pupils equal and round. No scleral icterus. No injection or drainage. ENT: No nasal bleeding or discharge. Mucous membranes pink and moist. NECK: Trachea midline. No JVD. Supple nontender full range of motion CARDIOVASCULAR: Regular rate and rhythm. S1 and S2 2/6 systolic ejection murmur RESPIRATORY: No accessory muscle use. Clear to auscultation. Breath sounds equal bilaterally. GASTROINTESTINAL: Abdomen soft, non-tender, nondistended. Hepatic and splenic margins not palpable. MUSCULOSKELETAL: Extremities without clubbing, cyanosis, or edema. No obvious deformities. NEUROLOGICAL: Awake and alert. No obvious cranial nerve deficits. Motor grossly within normal limits. Five out of 5 muscle strength in the arms and legs. Normal speech. PSYCHIATRIC: Appropriate mood and affect; insight and judgment normal. Data Data Last Documented VS Vital Signs Date Time Temp Pulse Resp B/P (MAP) Pulse Ox O2 Delivery O2 Flow Rate FiO2 04/13/17 23:38 96 Room Air 04/13/17 23:38 75 18 04/13/17 23:34 98.1 135/97 (110) Orders Orders Complete Blood Count With Diff (04/13/17 23:32) Comprehensive Metabolic Panel (04/13/17 23:32) B-Type Natriuretic Peptide (04/13/17 23:32) D-Dimer (04/13/17 23:32) Act Partial Throm Time (Ptt) (04/13/17 23:32) Prothrombin Time / Inr (Pt) (04/13/17 23:32) Magnesium (Mg) (04/13/17 23:32) Ckmb (Isoenzyme) Profile (04/13/17 23:32) Troponin I (04/13/17 23:32) Urinalysis - C+S If Indicated (04/13/17 23:32) Iv Access Insert/Monitor (04/13/17 23:32) Electrocardiogram (04/13/17 23:32) Ecg Monitoring (04/13/17 23:32) Oximetry (04/13/17 23:32) Oxygen Administration (04/13/17 23:32) Chest, Single Ap (04/13/17 23:32) Sodium Chloride 0.9% Flush (Ns Flush) (04/13/17 23:45) Ondansetron Inj (Zofran Inj) (04/14/17 00:15) Ketorolac Inj (Toradol Inj) (04/14/17 00:15) Troponin I (04/14/17 02:07) Labs Laboratory Tests Test 04/13/17 23:42 04/14/17 02:27 White Blood Count 7.9 TH/MM3 Red Blood Count 5.20 MIL/MM3 Hemoglobin 16.5 GM/DL Hematocrit 47.0 % Mean Corpuscular Volume 90.5 FL Mean Corpuscular Hemoglobin 31.8 PG Mean Corpuscular Hemoglobin Concent 35.1 % Red Cell Distribution Width 13.4 % Platelet Count 228 TH/MM3 Mean Platelet Volume 7.4 FL Neutrophils (%) (Auto) 62.7 % Lymphocytes (%) (Auto) 27.4 % Monocytes (%) (Auto) 8.5 % Eosinophils (%) (Auto) 0.9 % Basophils (%) (Auto) 0.5 % Neutrophils # (Auto) 5.0 TH/MM3 Lymphocytes # (Auto) 2.2 TH/MM3 Monocytes # (Auto) 0.7 TH/MM3 Eosinophils # (Auto) 0.1 TH/MM3 Basophils # (Auto) 0.0 TH/MM3 CBC Comment DIFF FINAL Differential Comment Prothrombin Time 10.6 SEC Prothromb Time International Ratio 1.0 RATIO Activated Partial Thromboplast Time 25.0 SEC D-Dimer Quantitative (PE/DVT) 0.28 MG/L FEU Blood Urea Nitrogen 9 MG/DL Creatinine 1.03 MG/DL Random Glucose 88 MG/DL Total Protein 7.4 GM/DL Albumin 4.0 GM/DL Calcium Level 9.0 MG/DL Magnesium Level 2.5 MG/DL Alkaline Phosphatase 73 U/L Aspartate Amino Transf (AST/SGOT) 11 U/L Alanine Aminotransferase (ALT/SGPT) 30 U/L Total Bilirubin 0.7 MG/DL Sodium Level 139 MEQ/L Potassium Level 3.6 MEQ/L Chloride Level 106 MEQ/L Carbon Dioxide Level 25.2 MEQ/L Anion Gap 8 MEQ/L Estimat Glomerular Filtration Rate 77 ML/MIN Total Creatine Kinase 62 U/L Troponin I LESS THAN 0.02 NG/ML B-Type Natriuretic Peptide 9 PG/ML MDM Medical Decision Making Medical Screen Exam Complete: Yes Emergency Medical Condition: Yes Medical Record Reviewed: Yes Differential Diagnosis Symptomatic PVCs, atypical chest pain Narrative Course Patient observed on cardiac catheterization technologist, no arrhythmias noted. Laboratory examinations reviewed, no significant abnormalities. Troponin and d- dimer normal. EKG normal sinus rhythm at 73 bpm, nonischemic intervals normal. Somewhat flattened T waves throughout Care plan developed, patient follow-up as outpatient, suggest Holter monitor for recurrence of pain & outpatient stress test Diagnosis Primary Impression: Atypical chest pain Additional Impression: Symptomatic PVCs Patient Instructions: Chest Pain (ED), General Instructions, Premature Ventricular Contractions (ED) Additional Instructions: Follow-up with your doctor. Recommend outpatient Holter monitor and outpatient stress test. Return promptly for worse Disposition: 01 DISCHARGE HOME Condition: Stable Santiago Tenorio MD Apr 14, 2017 02:41
[2017-04-14 02:54] VITALS: BP 140/98; PULSE 75; RESP 18; O2SAT 95
[2017-04-14] MEDS ORDERED: ALPRAZolam 0.5 MG TAB PO ONE (03:30)
[2017-04-14] MEDS ORDERED: METOPROLOL TARTRATE 25 MG TAB PO ONE (03:30)
[2017-04-14] MEDS ORDERED: ALPR.5 PO (03:57)
[2017-04-14] MEDS ORDERED: METO25TA3 PO (03:57)
[2017-04-14 05:25] VITALS: BP 145/98; PULSE 96; RESP 18; O2SAT 100
--- NOTE | 2017-04-14 14:48 | EKG ---
Date Performed: 04/13/2017 Time Performed: 23:32:52 PTAGE: 46 years EKG: Sinus rhythm NONSPECIFIC T-WAVE ABNORMALITY BORDERLINE ECG Since PREVIOUS TRACING , no significant change noted PREVIOUS TRACIN12/30/1993 11.40 DOCTOR: Sienna Amezcua Interpretating Date/Time 04/14/2017 14:47:06
== END 2017-04-14 05:27 | disposition home or self-care (01) ==
LOC: NEPE 23:27
DX: R07.89 Other chest pain (principal); I49.3 Ventricular premature depolarization; R94.31 Abnormal electrocardiogram [ECG] [EKG]; I10 Essential (primary) hypertension; Z87.19 Personal history of other diseases of the digestive system
CPT/HCPCS: 71045; 80053; 82550; 83735; 83880; 84484; 85025; 85379; 85610; 85730; 93005; 96374; 96375; 99285; J1885; J2405

== ENCOUNTER 2017-04-16 18:07 | Emergency (ER) | payer SELFPAY ==
[~2017-04-16] VITALS: Ht 182.9 cm; Wt 102.0 kg
[2017-04-16 18:07] VITALS: BP 171/98; PULSE 83; RESP 18; TEMP 98.5; O2SAT 99
[~2017-04-16 18:07] MED LIST changes: +ALPR.5 PO; -AMOX875T PO; -FLUT1SPR5 EACH NARE; +METO25TA3 PO; +MOBI7.5T PO
[2017-04-16 20:54] VITALS: BP 139/101; PULSE 67; RESP 12; O2SAT 97
[2017-04-16] MEDS ORDERED: OMEP20TA93 PO (20:57)
[2017-04-16] MEDS ORDERED: FAMOTIDINE 20 MG/2 ML VIAL IV PUSH SCH (21:15)
--- NOTE | 2017-04-16 21:46 | RADRPT ---
EXAM DATE/TIME: 04/16/2017 21:27 [facility] COMPARISON: No previous studies available for comparison. INDICATIONS : Diarrhea, abdomen pain MEDICAL HISTORY : None. SURGICAL HISTORY : None. ENCOUNTER: Initial ACUITY: 1 week PAIN SCORE: 3/10 LOCATION: Bilateral Abdomen FINDINGS: Supine and upright views of the abdomen reveal dilated loops of gas-filled small bowel degree within the left upper quadrant. Gas filled loops of nondilated colon are seen throughout the abdomen. No air -fluid levels. No pneumoperitoneum. No organomegaly. No abnormal calcifications. Bony structures are unremarkable. Lung bases are clear. CONCLUSION: Mildly dilated loops of small bowel within the left upper quadrant in a nonspecific pattern. I cannot completely exclude a proximal small bowel obstruction. Tim Porras Jr., MD on April 16, 2017 at 21:43 Board Certified Radiologist. This report was verified electronically.
[2017-04-16 21:53] LABS: BASOPHIL # 0.1 TH/MM3 (0-0.2); BASOPHIL % 0.6 % (0.0-2.0); EOSINOPHIL # 0.1 TH/MM3 (0-0.4); EOSINOPHIL % 0.6 % (0.0-4.0); HEMATOCRIT 49.9 % (39.0-51.0); HEMOGLOBIN 16.8 GM/DL (13.0-17.0); LYMPH % 24.8 % (9.0-44.0); LYMPHOCYTE # 2.2 TH/MM3 (1.0-4.8); MEAN CELL VOLUME 90.9 FL (80.0-100.0); MEAN CORPUSCULAR HEMOGLOBIN 30.6 PG (27.0-34.0); MEAN CORPUSCULAR HGB CONC 33.6 % (32.0-36.0); MEAN PLATELET VOLUME 7.9 FL (7.0-11.0); MONO % 6.9 % (0.0-8.0); MONOCYTE # 0.6 TH/MM3 (0-0.9); NEUT % 67.1 % (16.0-70.0); PLATELET COUNT 243 TH/MM3 (150-450); RED BLOOD COUNT 5.48 MIL/MM3 (4.50-5.90); RED CELL DISTRIBUTION WIDTH 13.5 % (11.6-17.2); WHITE BLOOD COUNT 8.9 TH/MM3 (4.0-11.0)
[2017-04-16 22:02] LABS: ALBUMIN 4.3 GM/DL (3.4-5.0); BICARBONATE 27.5 MEQ/L (21.0-32.0); BLOOD UREA NITROGEN 6 MG/DL (7-18); CALCIUM 9.4 MG/DL (8.5-10.1); CHLORIDE 103 MEQ/L (98-107); GLOMERULAR FILTRATION RATE 80 ML/MIN (>89); GLUCOSE,RANDOM 83 MG/DL (74-106); LIPASE 187 U/L (73-393); SODIUM (NA) 138 MEQ/L (136-145)
[2017-04-16 22:03] LABS: AST (GOT) 13 U/L (15-37)
[2017-04-16 22:07] LABS: ALKALINE PHOSPHATASE 76 U/L (45-117); ALT (GPT) 29 U/L (12-78); PROTHROMBIN TIME - PATIENT 10.4 SEC (9.8-11.6); TOTAL BILIRUBIN ADULT 0.8 MG/DL (0.2-1.0)
[2017-04-16 23:27] LABS: TROPONIN I LESS THAN 0.02 NG/ML (0.02-0.05)
[2017-04-16 23:34] VITALS: BP 130/88; PULSE 93; RESP 18; O2SAT 98
[2017-04-16] MEDS ORDERED: KETOROLAC TROMETHAMINE 30 MG/ML (IVP) VIAL IV PUSH ONE (23:45)
--- NOTE | 2017-04-16 23:48 | PD ---
HPI Chief Complaint: GI Complaint Time Seen by Provider: 20:46 Travel History International Travel<30 days: No Contact w/Intl Traveler<30days: No Traveled to known affect area: No History of Present Illness HPI Patient is a 38-year-old male coming in complaining of abdominal pain diarrhea chest pain bloating and red blood per rectum. He was here in the ER a week ago had a workup for chest pain was given metoprolol 25 mg by mouth for anxiety and tachycardia. The patient's saying he is worried because she's having blood per rectum and he once in the past had a perforated colon bleeding at that time he passed out had surgery however he has no scar on his abdomen. He was here a week or 2 ago for deviated septum. And he has multiple complaints in the past but seems anxiety somatizations possible denies any family cardiac history he is not had any history cardiac himself. He Is not diabetic is not hypertensive PFSH Past Medical History Autoimmune Disease: No Heart Rhythm Problems: No Cancer: No Cardiac Catheterization: No Cardiovascular Problems: No High Cholesterol: No Congestive Heart Failure: No Diabetes: No Diminished Hearing: No Endocrine: No Gastrointestinal Disorders: Yes (NOTED SOME GI BLEED ABOUT 2 MTHS AGO - NEVER SAW ) GERD: No Genitourinary: No Hiatal Hernia: No Hypertension: Yes (IN THE PAST) Immune Disorder: No Musculoskeletal: No Neurologic: No Reproductive: No Respiratory: No Ulcer: No Past Surgical History Abdominal Surgery: Yes (COLON SX) Coronary Artery Bypass Graft: No Social History Alcohol Use: Yes (OCCASIONALLY) Tobacco Use: No Substance Use: No Allergies-Medications (Allergen,Severity, Reaction): Coded Allergies: No Known Allergies (Verified Allergy, Unknown, 04/02/17) Reported Meds & Prescriptions Reported Meds & Active Scripts Active Metoprolol Tartrate 25 Mg Tab 25 Mg PO DAILY Reported Omeprazole 20 Mg Tab 20 Mg PO DAILY Review of Systems Except as stated in HPI: all other systems reviewed are Neg Cardiovascular: Positive: Chest Pain or Discomfort Gastrointestinal: Positive: Abdominal Pain, Other (bloating and bright red blood per rectum) Physical Exam Narrative GENERAL: Nontoxic-appearing in no distress SKIN: Warm and dry. HEAD: Atraumatic. Normocephalic. EYES: Pupils equal and round. No scleral icterus. No injection or drainage. ENT: No nasal bleeding or discharge. Mucous membranes pink and moist. NECK: Trachea midline. No JVD. CARDIOVASCULAR: Regular rate and rhythm. RESPIRATORY: No accessory muscle use. Clear to auscultation. Breath sounds equal bilaterally. GASTROINTESTINAL: Abdomen soft, non-tender, nondistended. Hepatic and splenic margins not palpable . Guaiac negative brown stool MUSCULOSKELETAL: Extremities without clubbing, cyanosis, or edema. No obvious deformities. NEUROLOGICAL: Awake and alert. No obvious cranial nerve deficits. Motor grossly within normal limits. Five out of 5 muscle strength in the arms and legs. Normal speech. PSYCHIATRIC: Appropriate mood and affect; insight and judgment normal. Data Data Last Documented VS Vital Signs Date Time Temp Pulse Resp B/P (MAP) Pulse Ox O2 Delivery O2 Flow Rate FiO2 04/16/17 23:53 04/16/17 23:34 93 18 98 Room Air 04/16/17 18:07 98.5 Orders Orders Complete Blood Count With Diff (04/16/17 18:18) Comprehensive Metabolic Panel (04/16/17 18:18) Lipase (04/16/17 18:18) Prothrombin Time / Inr (Pt) (04/16/17 18:18) Act Partial Throm Time (Ptt) (04/16/17 18:18) Type And Screen (04/16/17 18:18) Famotidine Inj (Pepcid Inj) (04/16/17 21:15) Abdomen, Flat & Upright (04/16/17 ) Ckmb (Isoenzyme) Profile (04/16/17 21:00) Troponin I (04/16/17 21:00) Ketorolac Inj (Toradol Inj) (04/16/17 23:45) Ed Discharge Order (04/16/17 23:44) Labs Laboratory Tests Test 04/16/17 21:00 White Blood Count 8.9 TH/MM3 Red Blood Count 5.48 MIL/MM3 Hemoglobin 16.8 GM/DL Hematocrit 49.9 % Mean Corpuscular Volume 90.9 FL Mean Corpuscular Hemoglobin 30.6 PG Mean Corpuscular Hemoglobin Concent 33.6 % Red Cell Distribution Width 13.5 % Platelet Count 243 TH/MM3 Mean Platelet Volume 7.9 FL Neutrophils (%) (Auto) 67.1 % Lymphocytes (%) (Auto) 24.8 % Monocytes (%) (Auto) 6.9 % Eosinophils (%) (Auto) 0.6 % Basophils (%) (Auto) 0.6 % Neutrophils # (Auto) 6.0 TH/MM3 Lymphocytes # (Auto) 2.2 TH/MM3 Monocytes # (Auto) 0.6 TH/MM3 Eosinophils # (Auto) 0.1 TH/MM3 Basophils # (Auto) 0.1 TH/MM3 CBC Comment DIFF FINAL Differential Comment Prothrombin Time 10.4 SEC Prothromb Time International Ratio 1.0 RATIO Activated Partial Thromboplast Time 25.5 SEC Blood Urea Nitrogen 6 MG/DL Creatinine 1.00 MG/DL Random Glucose 83 MG/DL Total Protein 8.0 GM/DL Albumin 4.3 GM/DL Calcium Level 9.4 MG/DL Alkaline Phosphatase 76 U/L Aspartate Amino Transf (AST/SGOT) 13 U/L Alanine Aminotransferase (ALT/SGPT) 29 U/L Total Bilirubin 0.8 MG/DL Sodium Level 138 MEQ/L Potassium Level 3.7 MEQ/L Chloride Level 103 MEQ/L Carbon Dioxide Level 27.5 MEQ/L Anion Gap 8 MEQ/L Estimat Glomerular Filtration Rate 80 ML/MIN Total Creatine Kinase 73 U/L Troponin I LESS THAN 0.02 NG/ML Lipase 187 U/L [facility] Medical Decision Making Medical Screen Exam Complete: Yes Emergency Medical Condition: Yes Differential Diagnosis Patient's abdominal pain could be pancreatitis could be gastritis it could be cholecystitis is were claim of rectal bleeding could be secondary to hemorrhoids internal versus external versus AV malformation versus polyps versus diverticulitis and his chest pain could be costochondritis versus GERD reflux versus cardiac Narrative Course Patient is given Pepcid IV he has a rectal exam that shows brown stool is guaiac -negative there is no signs of bleeding EKG is normal sinus rhythm he has a troponin that is negative his x-ray is nonspecific bowel gas pattern he has no further need for workup discharge with diagnosis of abdominal pain and anxiety. He is in the ER multiple times with multiple somatic complaints over the last few years he was here 2 days ago chest pain and had a full workup discharge him metoprolol which she thought was giving him rectal bleeding however he is completely guaiac-negative brown stool no signs of rectal bleeding discharged reassured follow-up outpatient Diagnosis Primary Impression: Bloating Additional Impression: Costochondritis Patient Instructions: Costochondritis (ED), General Instructions Disposition: 01 DISCHARGE HOME Condition: Good Joseph Gauthier MD Apr 16, 2017 23:48
== END 2017-04-17 00:02 | disposition home or self-care (01) ==
LOC: NEPE 18:07
DX: R14.0 Abdominal distension (gaseous) (principal); M94.0 Chondrocostal junction syndrome [Tietze]
CPT/HCPCS: 74019; 80053; 82550; 83690; 84484; 85025; 85610; 85730; 86850; 86900; 86901; 96374; 96375; 99284; J1885

== ENCOUNTER 2017-04-18 10:21 | Emergency (ER) | payer SELFPAY ==
[~2017-04-18] VITALS: Ht 182.9 cm; Wt 102.0 kg
[~2017-04-18 10:21] MED LIST changes: +OMEP20TA93 PO
[2017-04-18] MEDS ORDERED: IOHEXOL 350 MG/ML 10 ML VIAL (for RAD DIAG) IVCONTRAST ONE (10:22)
[2017-04-18 10:27] VITALS: BP 137/87; PULSE 80; RESP 18; TEMP 98.4; O2SAT 95
[2017-04-18] MEDS ORDERED: SODIUM CHLOR 0.9% 1000 ML INJ 1,000 ML IV SCH (11:11)
[2017-04-18 11:15] VITALS: PULSE 82
[2017-04-18] MEDS ORDERED: SODIUM CHLORIDE 0.9% FLUSH 10 ML FLUSH IV FLUSH PRN (11:15)
[2017-04-18] MEDS ORDERED: DICYCLOMINE HCL 10 MG CAP PO ONE (11:15)
[2017-04-18] MEDS ORDERED: ONDANSETRON HCL 4 MG/2 ML VIAL IVP ONE (11:15)
[2017-04-18 11:37] LABS: AUTOMATED NEUTROPHIL # 3.5 TH/MM3 (1.8-7.7); BASOPHIL % 0.7 % (0.0-2.0); EOSINOPHIL % 0.6 % (0.0-4.0); HEMATOCRIT 47.2 % (39.0-51.0); HEMOGLOBIN 16.3 GM/DL (13.0-17.0); LYMPH % 21.7 % (9.0-44.0); LYMPHOCYTE # 1.1 TH/MM3 (1.0-4.8); MEAN CELL VOLUME 91.3 FL (80.0-100.0); MEAN CORPUSCULAR HEMOGLOBIN 31.4 PG (27.0-34.0); MEAN CORPUSCULAR HGB CONC 34.4 % (32.0-36.0); MEAN PLATELET VOLUME 8.2 FL (7.0-11.0); MONO % 7.5 % (0.0-8.0); MONOCYTE # 0.4 TH/MM3 (0-0.9); NEUT % 69.5 % (16.0-70.0); PLATELET COUNT 244 TH/MM3 (150-450); RED BLOOD COUNT 5.17 MIL/MM3 (4.50-5.90); RED CELL DISTRIBUTION WIDTH 13.2 % (11.6-17.2)
[2017-04-18 11:43] LABS: INTERNATIONAL NORMALIZED RATIO 1.1 RATIO; PROTHROMBIN TIME - PATIENT 11.2 SEC (9.8-11.6)
[2017-04-18 11:45] LABS: BILIRUBIN, URINE NEG (NEG); BLOOD, URINE NEG (NEG); GLUCOSE,URINE NEG (NEG); KETONE, URINE 10 mg/dL (NEG); NITRITE,URINE NEG (NEG); URINE COLOR YELLOW (YELLW/STRAW); URINE LEUKOCYTE ESTERASE NEG (NEG)
[2017-04-18 11:55] LABS: ALBUMIN 4.2 GM/DL (3.4-5.0); ALT (GPT) 27 U/L (12-78); AST (GOT) 19 U/L (15-37); BICARBONATE 28.2 MEQ/L (21.0-32.0); BLOOD UREA NITROGEN 7 MG/DL (7-18); CALCIUM 9.2 MG/DL (8.5-10.1); CHLORIDE 104 MEQ/L (98-107); CREATININE 0.93 MG/DL (0.60-1.30); GLOMERULAR FILTRATION RATE 86 ML/MIN (>89); GLUCOSE,RANDOM 82 MG/DL (74-106); SODIUM (NA) 139 MEQ/L (136-145)
[2017-04-18 11:58] LABS: ALKALINE PHOSPHATASE 72 U/L (45-117); TOTAL BILIRUBIN ADULT 1.1 MG/DL (0.2-1.0); TOTAL PROTEIN 7.5 GM/DL (6.4-8.2)
--- NOTE | 2017-04-18 14:35 | EKG ---
Date Performed: 04/18/2017 Time Performed: 10:30:30 PTAGE: 47 years EKG: Sinus rhythm NONSPECIFIC T-WAVE ABNORMALITY BORDERLINE ECG Since PREVIOUS TRACING , no significant change noted PREVIOUS TRACIN04/13/2017 23.32 DOCTOR: Chad Richmond Interpretating Date/Time 04/18/2017 14:34:26
--- NOTE | 2017-04-18 14:48 | PD ---
HPI Chief Complaint: Abdominal Pain Time Seen by Provider: 10:49 Travel History International Travel<30 days: No Contact w/Intl Traveler<30days: No Traveled to known affect area: No History of Present Illness HPI Patient is a 47-year-old male who comes in complaining of pains in his torso. He says for the past 2 months he has had pains coming and going to his chest and his abdomen. He has been here multiple times in February and March. He was admitted to the chest pain center and discharged. Currently he is not having any pain. He says "my stomach is grumbling." He says his last bowel movement was 2 days ago and was normal. He denies fever or chills. He's had some nausea, but no vomiting. Nothing seems to make his pain better or worse. PFSH Past Medical History Autoimmune Disease: No Depression: No (pt stated he is feeling that way because he is ill) Heart Rhythm Problems: No Cancer: No Cardiac Catheterization: No Cardiovascular Problems: No High Cholesterol: No Congestive Heart Failure: No Diabetes: No Diminished Hearing: No Endocrine: No Gastrointestinal Disorders: Yes (NOTED SOME GI BLEED ABOUT 2 MTHS AGO - NEVER SAW ) GERD: Yes Genitourinary: No Hiatal Hernia: No Heparin Induced Thrombocytopen: No Hypertension: Yes (IN THE PAST) Immune Disorder: No Implanted Vascular Access Dvce: No Musculoskeletal: No Neurologic: No Reproductive: No Respiratory: No Ulcer: No Tetanus Vaccination: Unknown Past Surgical History Abdominal Surgery: Yes (COLON SX) Coronary Artery Bypass Graft: No Social History Alcohol Use: Yes (OCCASIONALLY) Tobacco Use: No Substance Use: No Allergies-Medications (Allergen,Severity, Reaction): Coded Allergies: No Known Allergies (Verified Allergy, Unknown, 04/02/17) Reported Meds & Prescriptions Reported Meds & Active Scripts Active Metoprolol Tartrate 25 Mg Tab 25 Mg PO DAILY Reported Omeprazole 20 Mg Tab 20 Mg PO DAILY Review of Systems Except as stated in HPI: all other systems reviewed are Neg General / Constitutional: No: Fever, Chills HENT: No: Headaches, Lightheadedness Cardiovascular: No: Chest Pain or Discomfort Respiratory: No: Shortness of Breath Gastrointestinal: Positive: Nausea, Abdominal Pain, No: Vomiting Genitourinary: No: Dysuria Musculoskeletal: No: Myalgias, Edema Skin: No Rash, No Change in Pigmentation Neurologic: No: Weakness, Dizziness Physical Exam Narrative GENERAL: Awake and alert, in no acute distress. SKIN: Focused skin assessment warm/dry. HEAD: Atraumatic. Normocephalic. EYES: Pupils equal and round. No scleral icterus. ENT: Mucous membranes pink and moist. NECK: Trachea midline. No JVD. CARDIOVASCULAR: Regular rate and rhythm. No murmur appreciated. RESPIRATORY: No accessory muscle use. Clear to auscultation. Breath sounds equal bilaterally. GASTROINTESTINAL: Abdomen soft, non-tender, nondistended. MUSCULOSKELETAL: No obvious deformities. No clubbing. No cyanosis. No edema. NEUROLOGICAL: Awake and alert. No obvious cranial nerve deficits. Motor grossly within normal limits. Normal speech. PSYCHIATRIC: Appropriate mood and affect; insight and judgment normal. Data Data Last Documented VS Vital Signs Date Time Temp Pulse Resp B/P (MAP) Pulse Ox O2 Delivery O2 Flow Rate FiO2 04/18/17 11:15 82 04/18/17 10:27 98.4 18 137/87 (104) 95 Orders Orders Complete Blood Count With Diff (04/18/17 11:11) Comprehensive Metabolic Panel (04/18/17 11:11) Prothrombin Time / Inr (Pt) (04/18/17 11:11) Act Partial Throm Time (Ptt) (04/18/17 11:11) Urinalysis - C+S If Indicated (04/18/17 11:11) Ct Abd/Pel W Iv Contrast(Rout) (04/18/17 11:11) Iv Access Insert/Monitor (04/18/17 11:11) Ecg Monitoring (04/18/17 11:11) Oximetry (04/18/17 11:11) Ondansetron Inj (Zofran Inj) (04/18/17 11:15) Sodium Chlor 0.9% 1000 Ml Inj (Ns 1000 M (04/18/17 11:11) Sodium Chloride 0.9% Flush (Ns Flush) (04/18/17 11:15) Dicyclomine (Bentyl) (04/18/17 11:15) Electrocardiogram (04/18/17 10:30) Iohexol 350 Inj (Omnipaque 350 Inj) (04/18/17 10:22) Labs Laboratory Tests Test 04/18/17 11:00 04/18/17 11:10 Urine Color YELLOW Urine Turbidity CLEAR Urine pH 7.0 Urine Specific [place] 1.005 Urine Protein NEG mg/dL Urine Glucose (UA) NEG mg/dL Urine Ketones 10 mg/dL Urine Occult Blood NEG Urine Nitrite NEG Urine Bilirubin NEG Urine Urobilinogen LESS THAN 2.0 MG/DL Urine Leukocyte Esterase NEG Urine WBC LESS THAN 1 /hpf Microscopic Urinalysis Comment CULT NOT INDICATED White Blood Count 5.0 TH/MM3 Red Blood Count 5.17 MIL/MM3 Hemoglobin 16.3 GM/DL Hematocrit 47.2 % Mean Corpuscular Volume 91.3 FL Mean Corpuscular Hemoglobin 31.4 PG Mean Corpuscular Hemoglobin Concent 34.4 % Red Cell Distribution Width 13.2 % Platelet Count 244 TH/MM3 Mean Platelet Volume 8.2 FL Neutrophils (%) (Auto) 69.5 % Lymphocytes (%) (Auto) 21.7 % Monocytes (%) (Auto) 7.5 % Eosinophils (%) (Auto) 0.6 % Basophils (%) (Auto) 0.7 % Neutrophils # (Auto) 3.5 TH/MM3 Lymphocytes # (Auto) 1.1 TH/MM3 Monocytes # (Auto) 0.4 TH/MM3 Eosinophils # (Auto) 0.0 TH/MM3 Basophils # (Auto) 0.0 TH/MM3 CBC Comment DIFF FINAL Differential Comment Prothrombin Time 11.2 SEC Prothromb Time International Ratio 1.1 RATIO Activated Partial Thromboplast Time 26.5 SEC Blood Urea Nitrogen 7 MG/DL Creatinine 0.93 MG/DL Random Glucose 82 MG/DL Total Protein 7.5 GM/DL Albumin 4.2 GM/DL Calcium Level 9.2 MG/DL Alkaline Phosphatase 72 U/L Aspartate Amino Transf (AST/SGOT) 19 U/L Alanine Aminotransferase (ALT/SGPT) 27 U/L Total Bilirubin 1.1 MG/DL Sodium Level 139 MEQ/L Potassium Level 4.2 MEQ/L Chloride Level 104 MEQ/L Carbon Dioxide Level 28.2 MEQ/L Anion Gap 7 MEQ/L Estimat Glomerular Filtration Rate 86 ML/MIN [place] Medical Decision Making Medical Screen Exam Complete: Yes Emergency Medical Condition: Yes Medical Record Reviewed: Yes Interpretation(s) ECG shows normal sinus rhythm at 69, no ST elevation or depression. Differential Diagnosis Gastritis versus dehydration versus electrolyte abnormality Narrative Course Patient is a 47-year-old male comes in with nonspecific complaints. Exam shows no acute abnormalities. IV established, labs sent. Labs show no acute abnormalities. CT abdomen and pelvis performed shows no acute abnormalities. Last 24 hours Impressions Abdomen/Pelvis CT 04/18/17 1111 Signed Impressions: Service Date/Time: Thursday, April 18, 2017 14:34 - CONCLUSION: There is a tiny nonobstructing stone in the left kidney and left adrenal adenoma has not changed. Vianney Jauregui MD Patient advised he needs to follow-up with a primary care doctor. He asks for a cab voucher. He is advised to try [id number] medication such as Tylenol or ibuprofen and Gas-X. Advised to return to the ED as needed for any worsening symptoms. Diagnosis Primary Impression: Abdominal pain Qualified Codes: R10.84 - Generalized abdominal pain Referrals: [facility] call for appointment Patient Instructions: Abdominal Pain (ED), General Instructions Additional Instructions: Take Tylenol or ibuprofen as needed for pain. Follow-up with a primary care doctor. Return to the ED as needed for any worsening symptoms. Disposition: 01 DISCHARGE HOME Condition: Stable Corin Allison MD Apr 18, 2017 14:48
--- NOTE | 2017-04-18 15:06 | RADRPT ---
EXAM DATE/TIME: 04/18/2017 14:34 [facility] COMPARISON: CT ABDOMEN & PELVIS W CONTRAST, May 22, 2012, 2:26. INDICATIONS : Sharp, stabbing pains in abdomen, constipation. IV CONTRAST: 96 cc Omnipaque 350 (iohexol) IV ORAL CONTRAST: No oral contrast ingested. RADIATION DOSE: 16.48 CTDIvol (mGy) MEDICAL HISTORY : Hypertension. Perforated colon. SURGICAL HISTORY : Colon resection. ENCOUNTER: Initial ACUITY: 2 days PAIN SCALE: 5/10 LOCATION: Bilateral upper quadrant TECHNIQUE: Volumetric scanning of the abdomen and pelvis was performed. Using automated exposure control and ad justment of the mA and/or kV according to patient size, radiation dose was kept as low as reasonably achievable to obtain optimal diagnostic quality images. DICOM format image data is available electro nically for review and comparison. FINDINGS: CT Abdomen: The liver, spleen, pancreas, adrenals are unremarkable. There is a tiny 2 mm nonobstructi ng stone in the left kidney with small cysts in both kidneys the largest measures 1.7 cm on the right . Approximate 1.9 cm left adrenal adenoma is seen not significantly changed. There is no evidence for any appreciable pathological adenopathy, free fluid, or bowel obstruction. CT pelvis: There is no evidence for mass, abscess formation, or any significant adenopathy within the pelvis. The appendix appears intact without definite signs of appendicitis. CONCLUSION: There is a tiny nonobstructing stone in the left kidney and left adrenal adenoma has not changed. Vianney Jauregui MD on April 18, 2017 at 15:01 Board Certified Radiologist. This report was verified electronically.
== END 2017-04-18 15:25 | disposition home or self-care (01) ==
LOC: NEPE 10:21
DX: R10.84 Generalized abdominal pain (principal); R94.31 Abnormal electrocardiogram [ECG] [EKG]
CPT/HCPCS: 74177; 80053; 81001; 85025; 85610; 85730; 93005; 96361; 96374; 99285; J2405; J7030; Q9967